=== PATIENT | female | born 1970 | race Caucasian/White ===

== ENCOUNTER 2019-12-13 12:04 | Observation (INO) ==
[2019-12-13 13:44] LABS: Basophils # 0.1 10*3/uL (0.0-0.2); Basophils % 0.3 % (0.0-0.8); Eosinophils # 0.2 10*3/uL (0.0-0.87); Eosinophils % 0.8 % (0.00-10.9); Hematocrit 47.3 VOL% (35.7-47.0); Hemoglobin 15.8 GM/DL (12.0-16.0); Immature Granulocytes % 1.8 %; Immature Granulocytes Absolute 0.35 #; Lymphocytes % 9.8 % (21.3-54.2); Mean Corpuscular HGB Conc 33.4 GM/DL (32-36); Mean Corpuscular Volume 89.9 FL (87-102); Mean Platelet Volume 9.9 FL (9.6-12.0); Monocytes % 4.2 % (1.7-12.7); Neutrophils % 83.1 % (38.7-73.9); Platelet Count 350 T/CUMM (130-400); Red Blood Count 5.26 MC/CUMM (3.8-5.5); Red Cell Distribution Width 12.1 % (9.3-17.3)
[2019-12-13 13:53] LABS: Osmolality,Calculated 275.2 MOS/KG (273-304)
[2019-12-13] MEDS ORDERED: metroNIDAZOLE INJ 500 MG in PREMIX 1 EACH IV STA (14:51)
[2019-12-13] MEDS ORDERED: LEVOFLOXACIN INJ 500 MG in PREMIX 1 EACH IV STA (14:51)
[2019-12-13] MEDS ORDERED: metroNIDAZOLE 500 MG/100 ML PREMIX IV ONE (14:56)
[2019-12-13] MEDS ORDERED: ONDANSETRON 4 MG/2 ML VIAL ONE (14:59)
[2019-12-13] MEDS ORDERED: DEXTROSE 50% 25 GM/50 ML VIAL IV PRN (15:13)
[2019-12-13] MEDS ORDERED: BISACODYL 5 MG TABLET PO PRN (15:13)
[2019-12-13] MEDS ORDERED: GLUCAGON 1 MG VIAL IM PRN (15:13)
[2019-12-13] MEDS ORDERED: SIMETHICONE CHEW 125 MG TABLET PO PRN (15:13)
[2019-12-13] MEDS ORDERED: hydrALAZINE 20 MG/1 ML VIAL IV PRN (15:13)
[2019-12-13] MEDS ORDERED: ACETAMINOPHEN 325 MG TABLET PO PRN (15:13)
[2019-12-13] MEDS ORDERED: CLORAZEPATE 3.75 MG TABLET PO PRN (15:25)
[2019-12-13] MEDS ORDERED: diphenhydrAMINE CAP 25 MG CAPSULE PO PRN (15:25)
[2019-12-13] MEDS ORDERED: FLUTICASONE 50 MCG NASAL SPRAY 16 GM BOTTLE BOTH NARES PRN (15:25)
[2019-12-13] MEDS ORDERED: cloNIDine 0.1 MG TABLET PO PRN (15:25)
[2019-12-13] MEDS ORDERED: tiZANidine 4 MG TABLET PO PRN (15:25)
[2019-12-13] MEDS ORDERED: ESTRADIOL 0.01% VAG CREAM 42.5 GM TUBE VAG SCH (15:30)
[2019-12-13] MEDS ORDERED: ENOXAPARIN 40 MG/0.4 ML SYRINGE SUBCUT SCH (15:30)
[2019-12-13] MEDS: ONDANSETRON 4 MG/2 ML VIAL IV PRN ×2 (18:03→21:24)
[2019-12-13] MEDS: INSULIN LISPRO 100 UNIT/ML SUBCUT SCH ×2 (18:07→21:25)
[2019-12-13] MEDS ORDERED: AMITRIPTYLINE 10 MG TABLET PO SCH (21:00)
[2019-12-13] MEDS: MORPHINE 4 MG/1 ML VIAL IV PRN (21:18)
[2019-12-13] MEDS: METOPROLOL SUCCINATE XL 50 MG TABLET PO SCH (21:23)
[2019-12-13] MEDS: SPIRONOLACTONE 50 MG TABLET PO SCH (21:23)
[2019-12-13] MEDS: metroNIDAZOLE INJ 500 MG in PREMIX 1 EACH IV SCH (23:59)
[2019-12-14 06:18] LABS: Basophils # 0.1 10*3/uL (0.0-0.2); Basophils % 0.6 % (0.0-0.8); Eosinophils # 0.3 10*3/uL (0.0-0.87); Hematocrit 44.2 VOL% (35.7-47.0); Hemoglobin 14.5 GM/DL (12.0-16.0); Immature Granulocytes % 1.4 %; Immature Granulocytes Absolute 0.17 #; Lymphocytes # 2.6 10*3/uL (1.4-4.0); Lymphocytes % 20.7 % (21.3-54.2); Mean Corpuscular HGB Conc 32.8 GM/DL (32-36); Mean Corpuscular Volume 90.9 FL (87-102); Mean Platelet Volume 9.7 FL (9.6-12.0); Monocytes % 6.7 % (1.7-12.7); Neutrophils % 68.6 % (38.7-73.9); Platelet Count 257 T/CUMM (130-400); Red Blood Count 4.86 MC/CUMM (3.8-5.5); White Blood Count 12.4 T/CUMM (4-12)
[2019-12-14] MEDS ORDERED: LEVOTHYROXINE 150 MCG TABLET PO SCH (07:00)
[2019-12-14 07:03] LABS: Calcium 9.6 MG/DL (8.5-10.1)
[2019-12-14] MEDS: metroNIDAZOLE INJ 500 MG in PREMIX 1 EACH IV SCH (07:13)
[2019-12-14] MEDS: MORPHINE 4 MG/1 ML VIAL IV PRN ×2 (07:28→11:53)
[2019-12-14] MEDS: INSULIN LISPRO 100 UNIT/ML SUBCUT SCH ×2 (08:25→11:24)
[2019-12-14] MEDS ORDERED: PANTOPRAZOLE 40 MG TABLET PO SCH (09:00)
[2019-12-14] MEDS ORDERED: ERGOCALCIFEROL 50,000 UNIT CAPSULE PO SCH (09:00)
[2019-12-14] MEDS: ONDANSETRON 4 MG/2 ML VIAL IV PRN ×2 (09:19→13:15)
[2019-12-14] MEDS: SPIRONOLACTONE 50 MG TABLET PO SCH (10:22)
[2019-12-14] MEDS: METOPROLOL SUCCINATE XL 50 MG TABLET PO SCH (10:22)
[2019-12-14 11:30] VITALS: BP 128/75
[2019-12-14] MEDS ORDERED: LEVOFLOXACIN INJ 750 MG in PREMIX 1 EACH IV SCH (16:00)
[2019-12-15] MEDS ORDERED: ESTRADIOL 0.1 MG TRANSDERM SCH (09:00)
== END 2019-12-14 16:00 | disposition home or self-care (01) ==
LOC: N.ED 12:04 → N.EDINP 12:04 → N.3E 16:25
PROVIDERS: ADMIT Internal Medicine; ATTEND Internal Medicine